=== PATIENT | male | born 1975 | race African-American/Black ===

== ENCOUNTER → 2020-10-06 14:03 | Outpatient (BNVA) | payer BC, SELFPAY | PROVIDERS: Visit Provider Urology ==

== ENCOUNTER 2020-10-25 06:49 | Day surgery (SDC) | payer BC, SELFPAY ==
[2020-10-15 10:09] VITALS: BMI 36.4
[2020-10-25] VITALS (7 sets, daily range): BP systolic 101–118; BP diastolic 55–79; PULSE 68–77; RESP 16–18; TEMP 36.2–36.8; O2SAT 95–99
--- NOTE | 2020-10-25 08:58 | HO.ANESPROP2 ---
[facility] Active Problems Active Problems: All Active Problems (Updated 10/15/20 @ 10:08 by Saundra Loza) Balanitis (Acute) Past Medical History Medical History (Updated 10/15/20 @ 10:08 by Saundra Loza) Balanitis Diabetes mellitus, type II Elevated cholesterol Hypertension Surgical History Surgical History (Updated 10/15/20 @ 10:08 by Saundra Loza) History of right inguinal hernia repair History of shoulder surgery Social History Social History Are you a primary care transition mgr to a significant other at home: No Do you presently have visiting nurse or other home services: No Smoking Status: Never smoker Use of substances other than those prescribed or required for medical reasons: No Have you been hit, kicked, punched, or otherwise hurt by someone within the past year? If so, by whom?: No Advance Directives: No Advance Directives Information Provided: No Advance Directives on File: No Recently lost weight without trying: No Meds Allergies Allergy/AdvReac Type Severity Reaction Status Date / Time No Known Allergies Allergy Verified 10/15/20 10:08 Active Medications: Current Medications Generic Name Dose Route Start Last Admin Trade Name Freq PRN Reason Stop Dose Admin Lactated Ringer's 1,000 mls @ 50 mls/hr 10/25/20 09:00 Lr IV .Q20H [facility] Home Medications Medication Instructions Recorded Confirmed Last Taken Type flash glucose sensor #1 ea 10/06/20 Unknown History insulin glargine 100 unit/mL (3 40 unit SUBCUT DAILY 10/06/20 10/15/20 Unknown History mL) subcutaneous pen lisinopril 5 mg tablet 5 mg PO DAILY 10/06/20 10/15/20 Unknown History metformin 1,000 mg tablet 1,000 mg PO BID 10/06/20 10/15/20 Unknown History pen needle, diabetic 32 gauge x #50 ea 10/06/20 Unknown History simvastatin 20 mg tablet 20 mg PO BEDTIME 10/06/20 10/15/20 Unknown History insulin glargine [Basaglar KwikPen 20 unit SUBCUT BEDTIME 10/15/20 10/15/20 Unknown History U-100 Insulin] Exam Exam Date and Time: October 25, 2020 0858 Height,Weight and Vital Signs: Height 5 ft 10 in Weight 115.212 kg Airway Mallampati Class: II TM Dist: >3cm Neck ROM: Full Heart: RRr Lungs: CTa BL Assessment and Plan Assessment Anesthesia Assessment: Anesthesia Plan Discussed and Chart Reviewed Final Anesthetic Review NPO: Yes (20 unit insulin) ASA Class: III Final Preanesthetic Review: No Changes in Pt Med Stat and Consent Obtained/Reviewed Patient Risk: Intermediate Procedure Risk: Intermediate Anesthetic Plan Anesthetic Plan: GA Disposition: Standard PACU
[2020-10-25 09:08] LABS: Glucose, Whole Blood 199 mg/dL (60-115)
[2020-10-25] MEDS: Lactated Ringers 1,000 ML 50 ML IV (09:15)
[2020-10-25] MEDS: levoFLOXacin/D5W 500 MG/100 ML PIGGYBACK 100 MG IV (09:53)
--- NOTE | 2020-10-25 10:56 | MHC.SHP ---
Pre-Procedural Eval Section A The patient is an INPATIENT: No Changes since office visit: No Cold of Flu in the past 2 weeks, No New Medical Problems, No Changes in Medication and No Patient answered all questions The History & Physical has been completed within 30 days and I have reviewed it.: Yes Section B Chief Complaint: balanitis Allergies: Allergies Allergy/AdvReac Type Severity Reaction Status Date / Time No Known Allergies Allergy Verified 10/15/20 10:08 Plan Diagnosis/Plan: Unchanged I have reviewed the history and physical and performed a pertinent physical examination on my patient. No changes have occurred unless specified. Circumcision
--- NOTE | 2020-10-25 12:13 | PM.OP ---
Brief Operative Note Date of Service: 10/25/20 Pre-op diagnosis: phimosis with balanitis Post-op diagnosis: same Procedure: Circumcision Surgeon: Feroz Dinh MD Anesthesia: GLMA Estimated blood loss (mL): 0 Pathology: none sent Condition: stable Disposition: same day
--- NOTE | 2020-10-25 12:19 | P.OP_ITS ---
Operative Note Operative Note Date of Service: 10/25/20 Narrative: PreOperative Diagnosis: Balanitis and phimosis Post Operative Diagnosis: Balanitis and phimosis Procedure: Circumcision Surgeon: Dr Feroz Dinh Anesthesia: General Indications for procedure: Recurring balanitis in inability to withdrawal foreskin of penile glans. Risks and benefits including bleeding, scarring, need for revision surgery been discussed. Procedure: After informed consent was verified the patient was brought to the operating room and placed in a supine position. Anesthesia was administered per protocol. The patient was prepped and draped sterile fashion. Safety pause time-out was performed. Antibiotics have been given. The penis was examined and proximal incision marked that lay just proximal to the resting position of the penile sulcus. This was followed around the circumference of the penis. A penile ring block was performed using 1% lidocai ne with no epinephrine. Approximately 8 cc. The proximal incision was developed with sharp blade running circumferentially around the penis. The skin was to give a 1 cm separation between the foreskin in the remaining penile shaft skin. The foreskin was withdrawn and the penile glans exposed. A a distal incision was made approximately 5 mm proximal to the penile sulcus. At the area of the frenulum care was taken to empty the penile frenulum intact. Using clamps the dorsal skin was elevated. Using Metzenbaum scissors the avascular plane was entered and proximal and distal incision were joined. The bridging skin was elevated and clamped. It was then divided using Bovie. The sleeve of tissue was then removed circumferentially around the penis using cautery in order to minimize bleeding. The shaft was then examined in any bleeding areas were controlled. More local anesthetic was injected into the plane beneath avascular plane to help with postprocedure pain management. The skin edges after they were appropriately examined low reapposed. A 3-0 chromic suture was placed at 12:00 o'clock and 06:00 o'clock positions. Interrupted 3-0 was then placed the 09:00 o'clock and 3 o'clock position. Each quadrant was then filled with 3 sutures using 4-0 chromic. At the completion of the procedure there was adequate hemostasis. The incision was washed and dried. Antibiotic cream was applied to the incision. A Vicente wrap was applied followed by a Coban dressing. Xeroform gauze had been used to cover antibiotic ointment. He tolerated the procedure well and was extubated in the room and transferred in stable condition to the recovery area. Pathology: Foreskin Drains: none
[2020-10-25 12:27] LABS: Glucose, Whole Blood 123 mg/dL (60-115)
== END 2020-10-25 14:26 | disposition home or self-care (01) ==
PROVIDERS: Visit Provider Urology
PROC: (CPT 54161; principal; 2020-10-25 09:30)
DX: N48.1 Balanitis (principal); N47.1 Phimosis; E11.9 Type 2 diabetes mellitus without complications; I10 Essential (primary) hypertension; Z79.4 Long term (current) use of insulin; Z79.899 Other long term (current) drug therapy
CPT/HCPCS: 54161; 82947; 88304; 88312; J1100; J1956; J2250; J2405; J3010

== ENCOUNTER → 2020-11-25 12:46 | Outpatient (BNVA) | payer OTHER, SELFPAY | PROVIDERS: Visit Provider Urology ==